=== PATIENT | female | born 1990 | race Caucasian/White ===

== ENCOUNTER 2016-06-25 18:26 | Emergency (ER) | payer SELFPAY ==
[~2016-06-25] VITALS: Ht 165.1 cm; Wt 54.0 kg
[~2016-06-25 18:26] MED LIST: BACT800T5 PO; HYDR-3533 PO
[2016-06-25 18:30] VITALS: BP 175/94; PULSE 100; RESP 15; TEMP 98.2; O2SAT 100
== END 2016-06-25 23:40 | disposition left against medical advice (07) ==
LOC: NED 18:26
DX: Z53.21 Procedure and treatment not carried out due to patient leaving prior to being seen by health care provider (principal)
CPT/HCPCS: 99281

== ENCOUNTER 2016-06-29 09:44 | Emergency (ER) | payer SELFPAY ==
[~2016-06-29] VITALS: Ht 160 cm; Wt 58.1 kg
[2016-06-29 09:56] VITALS: BP 119/76; PULSE 94; RESP 16; TEMP 98; O2SAT 98
[2016-06-29] MEDS ORDERED: SODIUM CHLORIDE 0.9% FLUSH 5 ML FLUSH IVF PRN (11:00)
--- NOTE | 2016-06-29 11:02 | PD ---
HPI . Right breast pain Chief Complaint: Respiratory Symptoms Time Seen by Provider: 10:50 Travel History International Travel<30 days: No Contact w/Intl Traveler<30days: No Traveled to known affect area: No History of Present Illness HPI This patient actually has 2 chief complaints. The first is right breast pain which has been an ongoing issue for about 3 or 4 weeks. She reports [facility]. The mammogram was negative for any suspicious. She was diagnosed with an inflamed duct. She states that she has not followed up since then and is taking no medications for the inflammation. She states that the pain and swelling is getting progressively worse since that time. She has not been running any fevers. She reports that she did have a discharge from her nipple which was greenish in color. The discharge has subsided. Her second complaint is pain in the right side of her chest and shortness of breath. This has started since she developed the breast problem. She states that sometimes it feels that she can't catch her breath. She has not had any cough or sputum production. NMAXAT4S: Right breast and right chest DURATION: 3 weeks TIMING: Gradually worsening ASSOCIATED SYMPTOMS: No associated fevers or chills PFSH Past Medical History Diminished Hearing: No Immunizations Current: Yes Tetanus Vaccination: > 5 Years Influenza Vaccination: No ?: Unknown LMP: 05/30/2015-IRREGULAR Past Surgical History Section: Yes Social History Alcohol Use: No Tobacco Use: Yes (1 PPD) Substance Use: Yes (IVDA (DILAUDID)) Allergies-Medications (Allergen,Severity, Reaction): Coded Allergies: *MDRO Multi-Drug Resistant Organism (Verified Adverse Reaction, Unknown, ) MRSA (buttock wound) 12/2014 Reported Meds & Prescriptions Reported Meds & Active Scripts Active Review of Systems Except as stated in HPI: all other systems reviewed are Neg General / Constitutional: No: Fever, Chills Cardiovascular: Positive: Chest Pain or Discomfort Respiratory: Positive: Shortness of Breath Skin: Positive Breast Lumps, Positive Breast Tenderness, Positive Breast Swelling Physical Exam Narrative GENERAL: Healthy-appearing female in no acute distress. SKIN: Warm and dry. HEAD: Atraumatic. Normocephalic. EYES: Pupils equal and round. ENT: No nasal bleeding or discharge. Mucous membranes pink and moist. NECK: Trachea midline. CARDIOVASCULAR: Regular rate and rhythm. RESPIRATORY: No accessory muscle use. Lungs are clear with full air movement throughout. BREASTS: She has a palpable mass in the right lateral breast which is tender to palpation. The overlying skin is not red or hot. There are no skin changes. There is no nipple discharge. GASTROINTESTINAL: Abdomen soft, non-tender, nondistended. MUSCULOSKELETAL: No obvious deformities. No edema. NEUROLOGICAL: Awake and alert. No obvious cranial nerve deficits. Motor grossly within normal limits. Normal speech. PSYCHIATRIC: Appropriate mood and affect; insight and judgment normal. Data Data Last Documented VS Vital Signs Date Time Temp Pulse Resp B/P Pulse Ox O2 Delivery O2 Flow Rate FiO2 06/29/16 09:56 98.0 94 16 119/76 98 Orders Complete Blood Count With Diff (06/29/16 10:55) Basic Metabolic Panel (Bmp) (06/29/16 10:55) Arterial Blood Gas (Abg) (06/29/16 10:55) Iv Access Insert/Monitor (06/29/16 10:55) Ct Pulmonary Angiogram (06/29/16 10:55) Sodium Chloride 0.9% Flush (Ns Flush) (06/29/16 11:00) Ed Urine Pregnancytest Poc (06/29/16 10:55) Labs Laboratory Tests Test 06/29/16 06/29/16 11:14 11:33 Blood Gas Puncture Site RT RADIAL Blood Gas Patient Temperature 98.6 Blood Gas HCO3 25 mmol/L Blood Gas Base Excess 0.7 mmol/L Blood Gas Oxygen Saturation 93 % Arterial Blood pH 7.43 Arterial Blood Partial 38 mmHG Pressure CO2 Arterial Blood Partial 95 mmHG Pressure O2 Arterial Blood Oxygen Content 15.6 Vol % Arterial Blood 5.1 % Carboxyhemoglobin Arterial Blood Methemoglobin 1.1 % Blood Gas Hemoglobin 11.8 G/DL Oxygen Delivery Device ROOM AIR Blood Gas Inspired Oxygen 21 % White Blood Count 7.7 TH/MM3 Red Blood Count 4.26 MIL/MM3 Hemoglobin 12.5 GM/DL Hematocrit 37.3 % Mean Corpuscular Volume 87.5 FL Mean Corpuscular Hemoglobin 29.3 PG Mean Corpuscular Hemoglobin 33.5 % Concent Red Cell Distribution Width 12.7 % Platelet Count 290 TH/MM3 Mean Platelet Volume 8.1 FL Neutrophils (%) (Auto) 47.5 % Lymphocytes (%) (Auto) 38.4 % Monocytes (%) (Auto) 7.8 % Eosinophils (%) (Auto) 4.9 % Basophils (%) (Auto) 1.4 % Neutrophils # (Auto) 3.6 TH/MM3 Lymphocytes # (Auto) 3.0 TH/MM3 Monocytes # (Auto) 0.6 TH/MM3 Eosinophils # (Auto) 0.4 TH/MM3 Basophils # (Auto) 0.1 TH/MM3 CBC Comment DIFF FINAL Differential Comment Sodium Level 141 MEQ/L Potassium Level 3.9 MEQ/L Chloride Level 105 MEQ/L Carbon Dioxide Level 29.4 MEQ/L Anion Gap 7 MEQ/L Blood Urea Nitrogen 8 MG/DL Creatinine 0.83 MG/DL Estimat Glomerular Filtration 83 ML/MIN Rate Random Glucose 55 MG/DL Calcium Level 8.2 MG/DL MDM Medical Decision Making Medical Screen Exam Complete: Yes Emergency Medical Condition: Yes Differential Diagnosis Differential diagnosis of chest pain includes but is not limited to musculoskeletal pain, pulmonary embolism, acute coronary syndrome, pneumonia, pleurisy Differential diagnosis of breast mass includes mastitis, fibrocystic disease, breast cancer Narrative Course Patient presents for the evaluation of 2 problems. The first is a right breast mass which appears to be mastitis on her history of physical exam. Her second problem is chest pain or shortness of breath. I feel that they are probably related to the breast mass. She will be evaluated for possible PE. CBC & BMP Diagram 06/29/16 11:33 ABG has a pH of 7.43, pCO2 of 38, pO2 of 95 The patient had to leave to go fern picker her child from daycare. She reports that she will return. 6:55 PM This patient has not returned to the emergency department Diagnosis Primary Impression: Chest pain Qualified Code: R07.9 - Chest pain, unspecified type Additional Impressions: Dyspnea Qualified Code: R06.00 - Dyspnea, unspecified type Mastitis in female Disposition: 07 AGAINST MEDICAL ADVICE Tessa Oneill MD Jun 29, 2016 11:02
[2016-06-29 11:23] LABS: BLOOD GAS BASE EXCESS 0.7 mmol/L (-2-2); BLOOD GAS CARBOXYHEMOGLOBIN 5.1 % (0-4); BLOOD GAS HCO3 25 mmol/L (22-26); BLOOD GAS METHEMOGLOBIN 1.1 % (0-2); BLOOD GAS O2 HGB SATURATION 93 % (90-100); BLOOD GAS OXYGEN CONTENT 15.6 Vol % (12.0-20.0); BLOOD GAS PCO2 38 mmHG (38-42); BLOOD GAS PO2 95 mmHG (61-120); BLOOD GAS TOTAL HGB 11.8 G/DL (12.0-16.0); CRITICAL VALUE YES; DRAW SITE RT RADIAL; FIO2 21 %; NUMBER OF ARTERIAL PUNCTURES 1; OXYGEN DEVICE ROOM AIR; STAT YES; TEMP CORR TO 98.6; ULNAR PULSE PRESENT
[2016-06-29 11:39] LABS: AUTOMATED NEUTROPHIL # 3.6 TH/MM3 (1.8-7.7); BASOPHIL # 0.1 TH/MM3 (0-0.2); BASOPHIL % 1.4 % (0.0-2.0); EOSINOPHIL # 0.4 TH/MM3 (0-0.4); EOSINOPHIL % 4.9 % (0.0-4.0); HEMATOCRIT 37.3 % (35.0-46.0); HEMO FLAGS DIFF FINAL; LYMPH % 38.4 % (9.0-44.0); MEAN CELL VOLUME 87.5 FL (80.0-100.0); MEAN CORPUSCULAR HEMOGLOBIN 29.3 PG (27.0-34.0); MEAN CORPUSCULAR HGB CONC 33.5 % (32.0-36.0); MONO % 7.8 % (0.0-8.0); NEUT % 47.5 % (16.0-70.0); PLATELET COUNT 290 TH/MM3 (150-450); RED BLOOD COUNT 4.26 MIL/MM3 (4.00-5.30); RED CELL DISTRIBUTION WIDTH 12.7 % (11.6-17.2); WHITE BLOOD COUNT 7.7 TH/MM3 (4.0-11.0)
[2016-06-29 11:47] LABS: POTASSIUM 3.9 MEQ/L (3.5-5.1)
[2016-06-29 11:50] LABS: BICARBONATE 29.4 MEQ/L (21.0-32.0)
[2016-06-30] MEDS ORDERED: CEPH-460 PO (22:13)
[2016-06-30] MEDS ORDERED: BACT800T5 PO (22:13)
== END 2016-06-29 16:45 | disposition left against medical advice (07) ==
LOC: PHED 09:44
DX: R07.9 Chest pain, unspecified (principal); R06.00 Dyspnea, unspecified; F17.210 Nicotine dependence, cigarettes, uncomplicated
CPT/HCPCS: 36600; 80048; 82805; 84703; 85025

== ENCOUNTER 2016-06-30 21:11 | Emergency (ER) | payer SELFPAY ==
[~2016-06-30] VITALS: Ht 165.1 cm; Wt 57.3 kg
[2016-06-30 21:30] VITALS: BP 90/67; PULSE 118; RESP 18; TEMP 98.7; O2SAT 95
--- NOTE | 2016-06-30 21:57 | PD ---
HPI . breast swelling, anxiety Chief Complaint: Respiratory Symptoms Time Seen by Provider: 21:56 Travel History International Travel<30 days: No Contact w/Intl Traveler<30days: No Traveled to known affect area: No History of Present Illness HPI 25 yr old female who was actually seen in the ED yesterday and had to leave AMA due to issues with getting her child from daycare here again to complete her workup. Patient is here telling me that she is still concerned about the swelling in her right breast. She is not really having any shortness of breath and is reporting that she does have intermittent anxiety where she has trouble catching her breath. She does admit to using diluted and did so today. She is injecting this into her veins. Workup yesterday was unremarkable. Dr. Oneill is here today and we had a discussion regarding this patient. 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 Reported Meds & Prescriptions Reported Meds & Active Scripts Active Bactrim DS (Sulfamethoxazole-Trimethoprim) 800-160 Mg Tab 1 Tab PO BID Keflex (Cephalexin) 500 Mg Cap 500 Mg PO Q6H Review of Systems General / Constitutional: No: Fever Eyes: No: Visual changes HENT: No: Headaches Cardiovascular: No: Chest Pain or Discomfort Respiratory: No: Shortness of Breath Gastrointestinal: No: Abdominal Pain Genitourinary: No: Dysuria Musculoskeletal: No: Pain Skin: Positive Breast Swelling, No Rash Neurologic: No: Weakness Psychiatric: No: Depression Endocrine: No: Polydipsia Hematologic/Lymphatic: No: Easy Bruising Physical Exam Narrative GENERAL: AAO x 3, no acute distress, Well-nourished, well-developed patient. Slightly anxious. SKIN: Warm and dry. No visible rashes or bruising. HEAD: Normocephalic and atraumatic. EYES: No scleral icterus. No injection or drainage. ENT: No nasal drainage noted. Mucous membranes pink. Airway patent. NECK: Supple, trachea midline. No JVD. CARDIOVASCULAR: Regular rate and rhythm without murmurs, gallops, or rubs. RESPIRATORY: Breath sounds equal bilaterally. No accessory muscle use. No rhonchi or rales. No wheezing. GASTROINTESTINAL: Abdomen soft, non-tender, nondistended. EXTREMITIES: No cyanosis or edema. BACK: Nontender without obvious deformity. No CVA tenderness. PSYCH: AAO x 3, normal affect. Breast: very minimal swelling of right breast on examination. No erythema, edema , or evidence of widespread cellulitis. No temperature variation. Data Data Last Documented VS Vital Signs Date Time Temp Pulse Resp B/P Pulse Ox O2 Delivery O2 Flow Rate FiO2 06/30/16 22:10 100 16 99 Room Air 06/30/16 21:30 98.7 90/67 MDM Medical Decision Making Medical Screen Exam Complete: Yes Emergency Medical Condition: Yes Medical Record Reviewed: Yes Differential Diagnosis mastitis, withdrawal, anxiety, less likely PE Narrative Course 25 yr old female who was actually seen in the ED yesterday and had to leave AMA due to issues with getting her child from daycare here again to complete her workup. Patient is here telling me that she is still concerned about the swelling in her right breast. She is not really having any shortness of breath and is reporting that she does have intermittent anxiety where she has trouble catching her breath. She does admit to using diluted and did so today. She is injecting this into her veins. Workup yesterday was unremarkable. Dr. Oneill is here today and we had a discussion regarding this patient. Patient seen and examined. She does not have any tachypnea or significant tachycardia. NO PE workup necessary and index of suspicion is low. She is demonstrating some anxious behaviors. She did use IV Dilaudid today. Last workup was remarkable for possible mastitis. I had a discussion with Dr. Oneill. I will treat for cellulitis and mastitis and dc home. We have discussed community resources such as [employer] volunteers in medicine for primary care needs. Patient verbalized understanding of instructions, questions were answered, and thanked me for their care. I advised them if their condition worsens, please return to the nearest emergency room for further care. Diagnosis Primary Impression: Mastitis in female Patient Instructions: Cellulitis (ED), General Instructions, Mastitis (ED) Additional Instructions: Please return to emergency department if your symptoms return or worsen. Follow up with your primary care provider. Take medications as prescribed. If you develop a sudden onset of shortness of breath or chest pain, please return to the nearest ED Try to find these community programs that we discussed to help with your primary care needs. [place] for worsening signs of infection which include increased redness, increased warmth, purulent drainage, increased swelling or streaking. Med/Other Pt SpecificInfo: Prescription(s) given Scripts Sulfamethoxazole-Trimethoprim (Bactrim DS)800-160 Mg Tab1 Tab PO BID #20 TAB Ref 0 Prov:Marvin Blanchard MD 06/30/16 Cephalexin (Keflex)500 Mg Ubz201 Mg PO Q6H #28 CAP Ref 0 Prov:Marvin Blanchard MD 06/30/16 Disposition: 01 DISCHARGE HOME Condition: Stable Amber Jerome Jun 30, 2016 21:56
[2016-06-30 22:10] VITALS: PULSE 100; RESP 16; O2SAT 99
[2016-06-30] MEDS ORDERED: CEPH-460 PO (22:13)
[2016-06-30] MEDS ORDERED: BACT800T5 PO (22:13)
== END 2016-06-30 22:30 | disposition home or self-care (01) ==
LOC: PHEFT 21:11
DX: N61.0 Mastitis without abscess (principal); F17.210 Nicotine dependence, cigarettes, uncomplicated
CPT/HCPCS: 99283